=== PATIENT | female | born 1960 | race Caucasian/White ===

== ENCOUNTER 2019-07-03 15:08 | Emergency (ER) | payer SELFPAY ==
[~2019-07-03] VITALS: Ht 167.6 cm; Wt 138.3 kg
[2019-07-03 15:15] VITALS: BP 154/69
[2019-07-03] MEDS ORDERED: VANCOMYCIN 1.5 GM in IV NORMAL SALINE 500ML 500 ML IV ONE (16:00)
[2019-07-03] MEDS ORDERED: PIPERACILLIN/TAZOBACTAM 3.375 GM in IV NORMAL SALINE 50ML 50 ML IV ONE (16:00)
--- NOTE | 2019-07-03 16:10 | RAD ---
EXAM: AP, oblique and lateral views of the left toes DATE: 07/03/2019 3:27 PM INDICATION: Ulceration, cellulitis third toe COMPARISON: No Prior FINDINGS: Diffuse soft tissue swelling seen about the left third toe with associated foci of subcutaneous gas. Prominent soft tissue ulceration is seen about the tuft with associated erosive/destructive change of the tuft of the distal phalanx third toe. Moderate soft tissue swelling seen about the second and fourth toes. Post amputation changes of the distal phalanx left great toe. IMPRESSION: 1. Soft tissue swelling with foci of gas most prominent about the third toe with erosive/destructive change of the tuft of distal phalanx consistent with acute osteomyelitis distal phalanx third toe with associated soft tissue swelling from likely from cellulitis. Electronically signed by: Galindo Bailey MD (07/03/2019 4:07 PM) [facility]
[2019-07-03] MEDS ORDERED: PIPERACILLIN/TAZOBACTAM 3.375 GM VIAL IV ONE (16:20)
[2019-07-03] MEDS ORDERED: IV NORMAL SALINE 50ML 50 ML ONE (16:20)
--- NOTE | 2019-07-03 16:22 | PHYS DOC ---
Past History Past Medical History: Diabetes, Hypertension, Pancreatitis, Other Additional Past Medical Histor: NEUROPATHY, LYMPHEDEMA, PERIPHERAL CIRCULATION ISSUES Past Surgical History: Other Additional Past Surgical Histo: NUMEROUS FOOT SURGERIES BILATERALLY TO INCLUDE PARTIAL TOE AMPUTATIONS Alcohol Use: Rarely Drug Use: None Adult General Chief Complaint Chief Complaint: FOOT INJURY PAIN HPI HPI 59-year-old female presents with diabetic foot wound and cellulitis. Patient states that 3 days ago she started to have increased inflammation, drainage, and redness of her left third toe. It is now spread to her entire foot is red hot. Her toe is mostly black. Patient has other foot ulcers on the right foot, but they are not as severe. Patient had chills overnight, but did not measure a fever. Her blood sugar was 210 this morning. He has had partial toe amputations in the past. She has no other complaints. Review of Systems Review of Systems Constitutional: Denies fever or chills [] Eyes: Denies change in visual acuity, redness, or eye pain [] HENT: Denies nasal congestion or sore throat [] Respiratory: Denies cough or shortness of breath [] Cardiovascular: No additional information not addressed in HPI [] GI: Denies abdominal pain, nausea, vomiting, bloody stools or diarrhea [] : Denies dysuria or hematuria [] Musculoskeletal: Denies back pain or joint pain [] Integument: Cellulitis and diabetic foot ulcers[] Neurologic: Denies headache, focal weakness or sensory changes [] Endocrine: Denies polyuria or polydipsia [] All other systems were reviewed and found to be within normal limits, except as documented in this note. Current Medications Current Medications Current Medications Medications (Trade) Dose Ordered Sig/Tonja Start Time Stop Time Status Last Admin Dose Admin Piperacillin Sod/ Tazobactam Sod 3.375 gm/Sodium Chloride 50 ml @ 100 mls/hr 1X ONCE 07/03/19 16:00 07/03/19 16:29 UNV Vancomycin HCl 1.5 gm/Sodium Chloride 500 ml @ 250 mls/hr 1X ONCE 07/03/19 16:00 07/03/19 17:59 UNV Allergies Allergies Allergies Coded Allergies Type Severity Reaction Last Updated Verified cephalexin Allergy Unknown 07/03/19 Yes Physical Exam Physical Exam Constitutional: Well developed, well nourished, no acute distress, non-toxic appearance. [] HENT: Normocephalic, atraumatic, bilateral external ears normal, oropharynx m oist, no oral exudates, nose normal. [] Eyes: PERRLA, EOMI, conjunctiva normal, no discharge. [] Neck: Normal range of motion, no tenderness, supple, no stridor. [] Cardiovascular:Heart rate regular rhythm, no murmur [] Lungs & Thorax: Bilateral breath sounds clear to auscultation [] Abdomen: Bowel sounds normal, soft, no tenderness, no masses, no pulsatile masses. [] Skin: Left foot erythematous and hot, third digit black and with purulent drainage. Multiple ulcers on right foot. Some distal blackened skin on right third toe[] Back: No tenderness, no CVA tenderness. [] Extremities: No tenderness, no cyanosis, no clubbing, ROM intact, no edema. [] Neurologic: Alert and oriented X 3, normal motor function, no focal deficits noted. [] Psychologic: Affect normal, judgement normal, mood normal. [] Current Patient Data Vital Signs Vital Signs Date Time Temp Pulse Resp B/P (MAP) Pulse Ox O2 Delivery O2 Flow Rate FiO2 07/03/19 15:15 98.3 74 20 95 Room Air EKG EKG [] Radiology/Procedures Radiology/Procedures [] Course & Med Decision Making Course & Med Decision Making Pertinent Labs and Imaging studies reviewed. (See chart for details) My exam revealed immediate need for IV antibiotics and admission to the hospital. Plain x-ray of the foot has been ordered. The patient does NOT currently meet sepsis criteria. I will start her on 1L normal saline, vancomycin and Zosyn. She has tolerated penicillins in the past despite her Keflex allergy. Blood cultures and lactic acid have been sent. The patient's blood pressure is normal. Her heart rate is normal. Respirations are normal. She does not have a fever in the ED. Patient's x-rays significant for osteomyelitis. I have made orthopedics aware, Dr. Miller. I also discussed the patient with the hospitalist, Dr. Becerril at [facility] and he has accepted the patient for transfer and admission. Her blood sugar is significantly elevated. See chart for more lab details. She appears to have a UTI, which the IV antibiotics will treat. Her lactic acid is within normal limits. She will transfer by ambulance. 34 minutes of critical care time was spent on this patient exclusive of other billable procedures. [] Dragon Disclaimer Dragon Disclaimer This electronic medical record was generated, in whole or in part, using a voice recognition dictation system. Departure Departure: Impression: Primary Impression: Cellulitis of foot Additional Impressions: Osteomyelitis Hyperglycemia due to type 2 diabetes mellitus UTI (urinary tract infection) Disposition: 02 XFER SHT-TRM HOSP Condition: STABLE Referrals: PCP,NO (PCP) Problem Qualifiers Additional Impressions: Osteomyelitis Osteomyelitis type: unspecified type Osteomyelitis location: foot Laterality: left Qualified Codes: M86.9 - Osteomyelitis, unspecified Hyperglycemia due to type 2 diabetes mellitus Diabetes mellitus ferry terminal supervisor insulin use: with half-way use Qualified Codes: E11.65 - Type 2 diabetes mellitus with hyperglycemia; Z79.4 - termite control servicer (current) use of insulin UTI (urinary tract infection) Urinary tract infection type: acute cystitis Hematuria presence: with hematuria Qualified Codes: N30.01 - Acute cystitis with hematuria SILAS BUSH DO Jul 03, 2019 16:22
[2019-07-03 16:29] LABS: BASO # 0.1 x10^3/uL (0.0-0.2); BASO % 1 % (0-3); EOS # 0.3 x10^3/uL (0.0-0.7); EOS % 2 % (0-3); HEMATOCRIT 41.5 % (36.0-47.0); HEMOGLOBIN 13.2 g/dL (12.0-15.5); LYMPH # 1.5 x10^3/uL (1.0-4.8); LYMPH % 11 % (24-48); MEAN CORPUSCULAR HEMOGLOBIN 29 pg (25-35); MEAN CORPUSCULAR HGB CONC 32 g/dL (31-37); MEAN CORPUSCULAR VOLUME 90 fL (79-100); MONO # 0.9 x10^3/uL (0.0-1.1); MONO % 6 % (0-9); NEUT # 11.1 x10^3uL (1.8-7.7); NEUT % 80 % (31-73); PLATELET COUNT 302 x10^3/uL (140-400); RED BLOOD COUNT 4.62 x10^6/uL (3.50-5.40); RED CELL DISTRIBUTION WIDTH 17.5 % (11.5-14.5); WHITE BLOOD COUNT 13.9 x10^3/uL (4.0-11.0)
[2019-07-03] MEDS ORDERED: VANCOMYCIN 2 GM in IV NORMAL SALINE 500ML 500 ML IV ONE (16:30)
[2019-07-03 16:44] LABS: ALBUMIN 2.7 g/dL (3.4-5.0); ALBUMIN/GLOBULIN RATIO 0.5 (1.0-1.7); CALCIUM 9.6 mg/dL (8.5-10.1); CREATININE 1.1 mg/dL (0.6-1.0); POTASSIUM 4.6 mmol/L (3.5-5.1); TOTAL BILIRUBIN 0.3 mg/dL (0.2-1.0); TOTAL PROTEIN 7.7 g/dL (6.4-8.2)
[2019-07-03 17:33] LABS: BILIRUBIN,URINE NEG (NEG); CLARITY,URINE CLOUDY; COLOR,URINE YELLOW; GLUCOSE,URINE >=1000 mg/dL (NEG); UROBILINOGEN,URINE 0.2 mg/dL (0.2 mg/dL)
[2019-07-03 17:34] LABS: BACTERIA,URINE MANY /HPF (0-FEW); NITRITE,URINE NEG (NEG); SQUAMOUS EPITHELIAL CELL,UR MANY /LPF; WBC,URINE >40 /HPF (0-4)
== END 2019-07-03 18:49 | disposition short-term general hospital (02) ==
LOC: ER 15:08
DX: L03.116 Cellulitis of left lower limb (principal); M86.8X7 Other osteomyelitis, ankle and foot; N30.01 Acute cystitis with hematuria; E11.65 Type 2 diabetes mellitus with hyperglycemia; I10 Essential (primary) hypertension; E11.40 Type 2 diabetes mellitus with diabetic neuropathy, unspecified; Z79.4 Long term (current) use of insulin; Z89.429 Acquired absence of other toe(s), unspecified side; Z88.1 Allergy status to other antibiotic agents
CPT/HCPCS: 36415; 73660; 80053; 81001; 83605; 85025; 87040; 87086; 96365; 96366; 96367; 99291; J2543; J3370; J7040

== ENCOUNTER 2019-10-12 12:59 | Emergency (ER) | payer SELFPAY ==
[~2019-10-12] VITALS: Ht 167.6 cm; Wt 138.3 kg
--- NOTE | 2019-10-12 13:28 | PHYS DOC ---
Past History Past Medical History: Dementia, Hypertension Additional Past Medical Histor: NEUROPATHY, LYMPHEDEMA, PERIPHERAL CIRCULATION ISSUES Past Surgical History: Other Additional Past Surgical Histo: L foot middle toe amputation 2019, c section Alcohol Use: None Drug Use: None Adult General Chief Complaint Chief Complaint: HEADACHE HPI HPI Patient is a 59-year-old female who presented to ER today for evaluation of right occipital headache that been going on for 3 weeks. Patient says she has history of migraine headache due to numerous concussions she had when she was young. Patient said loud noise and bright lights make her headache worse. Patient denies any fever, no neck pain. She has history hypertension and diabetic. Patient had not seen a neurologist for a long time. She had tried [id number] medication but did not get better. Blood pressure was taken here shown 183/89. Patient said she took her blood pressure medication already this AM. All other ROS is negative unless otherwise noted in HPI Review of Systems Review of Systems See above Allergies Allergies Allergies Coded Allergies Type Severity Reaction Last Updated Verified cephalexin Allergy Unknown 07/03/19 Yes Physical Exam Physical Exam See above Constitutional: Well developed, well nourished, no acute distress, non-toxic appearance. [] HENT: Normocephalic, atraumatic, bilateral external ears normal, oropharynx moist, no oral exudates, nose normal. [] Eyes: PERRLA, EOMI, conjunctiva normal, no discharge. [] Neck: Normal range of motion, no tenderness, supple, no stridor. [] Cardiovascular:Heart rate regular rhythm, no murmur [] Lungs & Thorax: Bilateral breath sounds clear to auscultation [] Abdomen: Bowel sounds normal, soft, no tenderness, no masses, no pulsatile masses. [] Skin: Warm, dry, no erythema, no rash. [] Back: No tenderness, no CVA tenderness. [] Extremities: No tenderness, no cyanosis, no clubbing, ROM intact, no edema. [] Neurologic: Alert and oriented X 3, normal motor function, normal sensory function, no focal deficits noted. [] Psychologic: Affect normal, judgement normal, mood normal. [] Current Patient Data Vital Signs Vital Signs Date Time Temp Pulse Resp B/P (MAP) Pulse Ox O2 Delivery O2 Flow Rate FiO2 10/12/19 13:20 97.9 78 18 94 Room Air EKG EKG [] Radiology/Procedures Radiology/Procedures [][address] [id number] IMAGING REPORT Signed PATIENT: GARFIELD RAMIREZ: [id number] : 1960 LOCATION: ER AGE: 59 SEX: F EXAM STATUS: REG ER ORD. PHYSICIAN: SIGRID MISHRA DO REASON: HEADACHE FOR 3 WEEKS, HYPERTENSION, BLOOD PRESSURE 180/90 PROCEDURE: CT HEAD WO CONTRAST CT HEAD WO CONTRAST Date: 10/12/2019 1:37 PM Clinical Indication: Headache for 3 weeks Comparison: None. Technique: 5 mm axial tomographic images were obtained of the head without contrast. These were viewed on brain and bone windows. One or more of the following dose reduction techniques were utilized: Automated exposure control (AEC), Adjustment of mA and/or kV according to patient size, Use of iterative reconstruction technique such as ASiR, CT scan done according to ALARA and image gently/image wisely Findings: The brain parenchyma is normal in attenuation. No intra- or extra-axial mass or fluid collection. No acute hemorrhage. The ventricles are normal in size, shape, and morphology. The sotelo-white matter junction is normal. The subarachnoid cisterns are patent. The visualized paranasal sinuses are normal. The visualized portions of the orbits and globes are normal. The mastoid air cells are clear. The ice cream chef topogram shows no lytic lesion or fracture. Impression: No acute intracranial process. Electronically signed by: Tyshawn Morgan MD (10/12/2019 2:08 PM) [facility] DICTATED AND SIGNED BY: TYSHAWN MORGAN MD DATE: 10/12/19 1408 CC: PCP,NO; SIGRID MISHRA DO ~ Course & Med Decision Making Course & Med Decision Making Pertinent Labs and Imaging studies reviewed. (See chart for details) Patient fell much better. Patient will be discharged home, she will need to follow with her family doctor to have her blood pressure reevaluated. Dragon Disclaimer Dragon Disclaimer This electronic medical record was generated, in whole or in part, using a voice recognition dictation system. Departure Departure: Impression: Primary Impression: Headache Additional Impression: Hypertension Disposition: 01 HOME, SELF-CARE Condition: IMPROVED Referrals: PCP,NO (PCP) PLEASER FOLLOW UP WITH YOUR FAMILY DOCTOR NEXT WEEK FOR REEVALUATION OF YOUR BLOOD PRESSURE. Patient Instructions: General Headache Without Cause, Hypertension Scripts Butalbital/Aspirin/Caffeine (FIORINAL 50-325-40 MG CAPSULE) 1 Each Capsule 1 EACH PO Q4HRS PRN for HEADACHE for 3 Days, #18 CAP Prov: SIGRID MISHRA DO 10/12/19 Problem Qualifiers SIGRID MISHRA DO Oct 12, 2019 13:27
[2019-10-12] MEDS ORDERED: diphenhydrAMINE 50 MG/ML VIAL IVP ONE (13:45)
[2019-10-12] MEDS ORDERED: METOCLOPRAMIDE HCL 10 MG/2 ML VIAL. IVP ONE (13:45)
--- NOTE | 2019-10-12 14:11 | RAD ---
CT HEAD WO CONTRAST Date: 10/12/2019 1:37 PM Clinical Indication: Headache for 3 weeks Comparison: None. Technique: 5 mm axial tomographic images were obtained of the head without contrast. These were viewed on brain and bone windows. One or more of the following dose reduction techniques were utilized: Automated exposure control (AEC), Adjustment of mA and/or kV according to patient size, Use of iterative reconstruction technique such as ASiR, CT scan done according to ALARA and image gently/image wisely Findings: The brain parenchyma is normal in attenuation. No intra- or extra-axial mass or fluid collection. No acute hemorrhage. The ventricles are normal in size, shape, and morphology. The sotelo-white matter junction is normal. The subarachnoid cisterns are patent. The visualized paranasal sinuses are normal. The visualized portions of the orbits and globes are normal. The mastoid air cells are clear. The rollway man topogram shows no lytic lesion or fracture. Impression: No acute intracranial process. Electronically signed by: Tyshawn Morgan MD (10/12/2019 2:08 PM) [facility]
[2019-10-12] MEDS ORDERED: cloNIDine HCL 0.1 MG TABLET PO ONE (14:30)
[2019-10-12] MEDS ORDERED: KETOROLAC 30 MG/ML VIAL. IVP ONE (14:30)
[2019-10-12] MEDS ORDERED: BUTA1CAP31 PO (14:49)
[2019-10-12 15:17] VITALS: BP 182/86
== END 2019-10-12 15:24 | disposition home or self-care (01) ==
LOC: ER 12:59
DX: R51 Headache (principal); I10 Essential (primary) hypertension; F03.90 Unspecified dementia, unspecified severity, without behavioral disturbance, psychotic disturbance, mood disturbance, and anxiety; Z88.1 Allergy status to other antibiotic agents
CPT/HCPCS: 70450; 96374; 96375; 99284; J1200; J1885; J2765

== ENCOUNTER → 2019-11-29 | Outpatient (CLI) | payer MEDICAID ==
[~2019-11-29] MED LIST: BUTA1CAP31 PO
--- NOTE | 2019-11-29 16:41 | RAD ---
CHEST PA LATERAL History: Chest discomfort Comparison: July 05, 2019 Findings: 2 lateral views and single PA view of the chest are submitted. Pericardial cardiac silhouette is considered within normal limits. There is no dependent pleural fluid or pneumothorax. No new lobar consolidation is identified. Impression: 1. No acute radiographic abnormality is identified. Electronically signed by: Tyshawn Patel MD (11/29/2019 4:38 PM) [facility]
--- NOTE | 2019-11-29 16:48 | RAD ---
2 view study of the right foot Clinical indications: Diabetic ulcer of the right foot. FINDINGS: There is diffuse soft tissue swelling of the digits of the right foot. In the lateral view, there is mild cortical irregularity of the distal tuft of the third distal phalanx. No lytic process is seen elsewhere. No acute fracture or dislocation is seen. There is severe degenerative osteoarthritis with loss of joint space of the first metatarsal phalangeal joint. There is soft tissue ossification located on both lateral sides of this joint compartment. There is mild degenerative osteoarthritis of the intertarsal joints and the tarsal metatarsal joints. There is a moderate-sized plantar spur of the calcaneus. IMPRESSION: Cortical irregularity of the distal tuft of the third distal phalanx in association with soft tissue swelling of the digit. If this is the area of the ulcer, then early underlying osteomyelitis is possible. This may be further evaluated with MRI imaging if clinically needed. Electronically signed by: Shailesh Shi MD (11/29/2019 4:45 PM) [facility]
== END | disposition home or self-care (01) ==
LOC: PMG 15:09
PROVIDERS: ATTEND Registered Nurse
DX: E11.621 Type 2 diabetes mellitus with foot ulcer (principal); M79.89 Other specified soft tissue disorders; M19.071 Primary osteoarthritis, right ankle and foot; M77.31 Calcaneal spur, right foot; R07.89 Other chest pain
CPT/HCPCS: 71046; 73620

== ENCOUNTER 2019-12-01 11:09 | Emergency (ER) | payer MEDICAID, OTHER ==
[~2019-12-01] VITALS: Ht 167.6 cm; Wt 139.8 kg
[2019-12-01] MEDS ORDERED: IV NORMAL SALINE 1,000ML 1,000 ML IV SCH ×2 (11:36→13:15)
[2019-12-01 11:51] LABS: BASO % 1 % (0-3); EOS # 0.2 x10^3/uL (0.0-0.7); EOS % 2 % (0-3); HEMATOCRIT 46.8 % (36.0-47.0); HEMOGLOBIN 14.9 g/dL (12.0-15.5); LYMPH # 1.9 x10^3/uL (1.0-4.8); LYMPH % 26 % (24-48); MEAN CORPUSCULAR HEMOGLOBIN 28 pg (25-35); MEAN CORPUSCULAR HGB CONC 32 g/dL (31-37); MEAN CORPUSCULAR VOLUME 89 fL (79-100); MONO # 0.5 x10^3/uL (0.0-1.1); MONO % 7 % (0-9); NEUT # 4.6 x10^3uL (1.8-7.7); NEUT % 64 % (31-73); PLATELET COUNT 272 x10^3/uL (140-400); RED BLOOD COUNT 5.27 x10^6/uL (3.50-5.40); RED CELL DISTRIBUTION WIDTH 15.4 % (11.5-14.5); WHITE BLOOD COUNT 7.2 x10^3/uL (4.0-11.0)
--- NOTE | 2019-12-01 11:57 | PHYS DOC ---
Past History Past Medical History: Dementia, Hypertension Additional Past Medical Histor: NEUROPATHY, LYMPHEDEMA, PERIPHERAL CIRCULATION ISSUES Past Surgical History: Other Additional Past Surgical Histo: L foot middle toe amputation 2019, c section Alcohol Use: None Drug Use: None Adult General Chief Complaint Chief Complaint: MULTIPLE COMPLAINTS HPI HPI 59-year-old female presents with concern for osteomyelitis. The patient was seen by her PCP today and they took an x-ray of the right foot. They're concerned she may have osteomyelitis. They also did a troponin which they found to be elevated. The patient has been having mild, intermittent chest tightness for the last couple weeks. It radiates down into the back of her arms. Today, she states similar pain 2 out of 10 only radiating down the right arm. Patient does have a cardiac history. She has 2 LAD stents. The last one was 4 years ago she has not had a stress test for a year. She denies increased shortness of breath or diaphoresis. Denies fever or chills. Review of Systems Review of Systems Constitutional: Denies fever or chills [] Eyes: Denies change in visual acuity, redness, or eye pain [] HENT: Denies nasal congestion or sore throat [] Respiratory: Denies cough or shortness of breath [] Cardiovascular: No additional information not addressed in HPI [] GI: Denies abdominal pain, nausea, vomiting, bloody stools or diarrhea [] : Denies dysuria or hematuria [] Musculoskeletal: Denies back pain or joint pain [] Integument: Right foot wound plantar surface, wound distal 2nd toe[] Neurologic: Denies headache, focal weakness or sensory changes [] Endocrine: Denies polyuria or polydipsia [] All other systems were reviewed and found to be within normal limits, except as documented in this note. Current Medications Current Medications Current Medications Medications (Trade) Dose Ordered Sig/Tonja Start Time Stop Time Status Last Admin Dose Admin Aspirin (Children'S Aspirin) 324 mg 1X ONCE 12/01/19 12:15 12/01/19 12:16 Sodium Chloride 1,000 ml @ 1,000 mls/hr Q1H 12/01/19 11:36 12/01/19 12:35 Allergies Allergies Allergies Coded Allergies Type Severity Reaction Last Updated Verified cephalexin Allergy Unknown 07/03/19 Yes Physical Exam Physical Exam Constitutional: Well developed, morbidly obese, well nourished, no acute distress, non-toxic appearance. [] HENT: Normocephalic, atraumatic, bilateral external ears normal, oropharynx moist, no oral exudates, nose normal. [] Eyes: PERRLA, EOMI, conjunctiva normal, no discharge. [] Neck: Normal range of motion, no tenderness, supple, no stridor. [] Cardiovascular: Heart rate regular rhythm, no murmur [] Lungs & Thorax: Bilateral breath sounds clear to auscultation [] Abdomen: Bowel sounds normal, soft, no tenderness, no masses, no pulsatile masses. [] Skin: Right foot wound plantar surface, wound distal 2nd toe[] Back: No tenderness, no CVA tenderness. [] Extremities: No tenderness, no cyanosis, no clubbing, ROM intact, no edema. [] Neurologic: Alert and oriented X 3, normal motor function, normal sensory function, no focal deficits noted. [] Psychologic: Affect normal, judgement normal, mood normal. [] EKG EKG Sinus rhythm, rate 72, normal axis, no ST elevation or depression[] Radiology/Procedures Radiology/Procedures [] Impressions: PORTABLE CHEST 1V History: Chest pain Comparison: 11/29/2019 Findings: Single view of the chest is submitted. There is a greater degree of attenuation by the soft tissues for this exam, appearance of some hazy opacity with basilar predominance probably due to technical factors. There is no pneumothorax, convincing dependent pleural fluid, or new convincing lobar infiltrate. Heart size is similar. Impression: 1. Appearance of increased hazy opacity at the lung bases is probably accentuated by technical factors, no convincing acute radiographic abnormality. Electronically signed by: Shreya Mesa MD (12/01/2019 12:03 PM) [id number] DICTATED AND SIGNED BY: SHREYA MESA MD DATE: 12/01/19 1207 CC: SILAS BUSH DO; LOR STEVENSON WEBSPHERE PORTAL DEVELOPER-C ~ Course & Med Decision Making Course & Med Decision Making Pertinent Labs and Imaging studies reviewed. (See chart for details) The patient's white count is normal. Her blood pressure is normal heart rate she does not have a fever. She does have a lactic acid 2.3. I will give the patient 30 mL/kg ideal body weight normal saline. The patient does not appear clinically septic. CT scan does show that she has osteomyelitis of the right second toe. She also has an elevated troponin of 0.23. Her EKG is unremarkable. I spoke with Dr. Pike and he has recommended patient be transferred to [facility] for admission. He will admit her there. The patient is in agreement with this plan. We'll also start vancomycin prior to transfer. [] Dragon Disclaimer Dragon Disclaimer This electronic medical record was generated, in whole or in part, using a voice recognition dictation system. Departure Departure: Impression: Primary Impression: Osteomyelitis Additional Impression: Elevated troponin I level Disposition: XFER [facility] Admitting Physician: Ruddy Pike Condition: STABLE Referrals: [employer] STEVEN[employer]SPH[employer] PORTAL DEVELOPER-C (PCP) Problem Qualifiers Primary Impression: Osteomyelitis Osteomyelitis type: other acute Osteomyelitis location: foot Laterality: right Qualified Codes: M86.171 - Other acute osteomyelitis, right ankle and foot SILAS BUSH DO Dec 01, 2019 11:57
[2019-12-01 11:59] LABS: CALCIUM 9.6 mg/dL (8.5-10.1); CREATININE 0.7 mg/dL (0.6-1.0); GFR 85.9; POTASSIUM 3.8 mmol/L (3.5-5.1)
[2019-12-01 12:05] LABS: ALBUMIN 3.4 g/dL (3.4-5.0); ALBUMIN/GLOBULIN RATIO 0.9 (1.0-1.7); TOTAL BILIRUBIN 0.2 mg/dL (0.2-1.0); TOTAL PROTEIN 7.3 g/dL (6.4-8.2)
--- NOTE | 2019-12-01 12:06 | RAD ---
PORTABLE CHEST 1V History: Chest pain Comparison: 11/29/2019 Findings: Single view of the chest is submitted. There is a greater degree of attenuation by the soft tissues for this exam, appearance of some hazy opacity with basilar predominance probably due to technical factors. There is no pneumothorax, convincing dependent pleural fluid, or new convincing lobar infiltrate. Heart size is similar. Impression: 1. Appearance of increased hazy opacity at the lung bases is probably accentuated by technical factors, no convincing acute radiographic abnormality. Electronically signed by: Tyshawn Patel MD (12/01/2019 12:03 PM) [facility]
[2019-12-01] MEDS ORDERED: ASPIRIN 81 MG TAB.CHEW PO ONE (12:15)
[2019-12-01 12:49] LABS: BILIRUBIN,URINE NEG (NEG); CLARITY,URINE CLEAR; COLOR,URINE YELLOW; GLUCOSE,URINE 250 mg/dL (NEG); NITRITE,URINE NEG (NEG); RBC,URINE 0 /HPF (0-2); UROBILINOGEN,URINE 0.2 mg/dL (0.2 mg/dL)
[2019-12-01 12:50] LABS: BACTERIA,URINE 0 /HPF (0-FEW); SQUAMOUS EPITHELIAL CELL,UR MOD /LPF
[2019-12-01] MEDS ORDERED: VANCOMYCIN 1.5 GM in IV NORMAL SALINE 500ML 500 ML IV ONE (13:15)
--- NOTE | 2019-12-01 13:26 | RAD ---
EXAM: Left foot CT without IV contrast INDICATION: Possible osteomyelitis right foot. TECHNIQUE: All CT scans performed at this facility utilize dose optimization techniques as appropriate to the exam, including the following: Automated exposure control and adjustment of the mA and/or KV according to patient size (this includes techniques or standardized protocols for targeted exams where dose is indication/reason for exam). COMPARISON: None FINDINGS: The soft tissues on the plantar aspect of the first metatarsal demonstrate a defect in the skin with soft tissue gas. No radiopaque foreign body but there is loss of fat planes and soft tissue stranding that extends up to the first metatarsal head which shows eroded cortical bone and sclerosis in the marrow space. The great toe is held in hyperdorsiflexion, with mild proximal subluxation. IMPRESSION: Findings concerning for osteomyelitis of the first metatarsal head. FOR INTERNAL CODING PURPOSES Critical result: Findings discussed with SILAS BUSH at 12/01/2019 12:59 PM. RESULT CODE: (C) Electronically signed by: Rhina Guadalupe MD (12/01/2019 1:23 PM) [id number]
[2019-12-01] MEDS ORDERED: VANCOMYCIN 2 GM in IV NORMAL SALINE 500ML 500 ML IV ONE (14:00)
--- NOTE | 2019-12-01 17:22 | EKG ---
[address] [id number] Test Date: 2019-12-01 Test Time: 11:37:20 Pat Name: GARFIELD RAMIREZ Department: Room: Gender: F Manager Of Information: : 1960 Requested By: SILAS BUSH Order Number: [id number] Reading MD: Measurements Intervals [place] Rate: 72 P: 54 CA: 148 QRS: 60 QRSD: 92 T: 26 QT: 396 QTc: 435 Interpretive Statements SINUS RHYTHM NORMAL ECG RI6.01 No previous ECG available for comparison
[2019-12-01 19:15] VITALS: BP 183/84
[2019-12-01] MEDS ORDERED: GABAPENTIN 300 MG CAPSULE. PO ONE (19:30)
== END 2019-12-01 19:30 | disposition short-term general hospital (02) ==
LOC: ER 11:09
DX: M86.9 Osteomyelitis, unspecified (principal); R79.89 Other specified abnormal findings of blood chemistry; R07.9 Chest pain, unspecified; M54.9 Dorsalgia, unspecified; I10 Essential (primary) hypertension; Z88.1 Allergy status to other antibiotic agents
CPT/HCPCS: 36415; 71045; 73700; 80053; 81001; 83605; 84484; 85025; 87040; 93005; 96365; 99285; J3370; J7040; J7030